=== PATIENT | female | born 1955 | race Caucasian/White ===

== ENCOUNTER → 2018-12-25 | Outpatient (CLI) | payer MEDICARE | END | disposition short-term general hospital (02) | LOC: EMS 21:49 | PROVIDERS: ATTEND Surgery | DX: R06.02 Shortness of breath (principal); R42 Dizziness and giddiness; R07.9 Chest pain, unspecified | CPT/HCPCS: A0425; A0427; A0888 ==

== ENCOUNTER 2020-10-14 16:15 | Outpatient (CLI) | payer MEDICARE, OTHER | END 2020-10-14 23:59 | disposition home or self-care (01) | LOC: LAB.R 16:15 | PROVIDERS: ATTEND Dentist General Practice | DX: Z01.89 Encounter for other specified special examinations (principal) | CPT/HCPCS: 36415 ==

== ENCOUNTER 2022-07-01 17:02 | Outpatient (CLI) | payer MEDICARE, OTHER | END 2022-07-01 17:03 | disposition critical access hospital (66) | LOC: EMS 17:02 | DX: M54.89 Other dorsalgia (principal); R20.0 Anesthesia of skin | CPT/HCPCS: A0425; A0429 ==

== ENCOUNTER 2022-07-01 17:20 | Emergency (ER) | payer MEDICARE, OTHER ==
[2022-07-01] MEDS ORDERED: methocarbamoL 500 MG TABLET PO STA (17:30)
[2022-07-01] MEDS ORDERED: KETOROLAC 30 MG/ML VIAL IM STA (17:30)
--- NOTE | 2022-07-01 17:54 | XRAY Report ---
PROCEDURE: Shoulder 2 View LT INDICATIONS: L SHOULDER PAIN X1 WEEK TECHNIQUE: 2 views of the shoulder were acquired. COMPARISON: None. FINDINGS: Bones: No fractures or dislocations. No suspicious bony lesions. Visualized ribs appear intact. M ild generalized left shoulder degenerative change can be seen. Soft tissues: No suspicious soft tissue calcifications. There is a calcified granuloma seen within the left midlung laterally. IMPRESSION: Age-appropriate left shoulder degenerative changes can be seen by plain film. If it would be helpful for clinical management decision making, please consider a dedicated, schedule d shoulder MRI for further evaluation (assuming that there is no contraindication). Reviewed by: Bautista Morgan MD on 07/01/2022 4:53 PM LEANDRO Approved by: Bautista Morgan MD on 07/01/2022 4:53 PM LEANDRO Station ID: [id number]
[2022-07-01] MEDS ORDERED: HALOPERIDOL 5 MG/ML VIAL IM STA (17:56)
[2022-07-01] MEDS ORDERED: BUPIVACAINE 0.75% MPF 30 ML VIAL EP ONE (18:39)
[2022-07-01] MEDS ORDERED: MORPHINE 2 MG/ML CARPUJECT IM STA (18:45)
--- NOTE | 2022-07-01 19:18 | ED Physician Documentation ---
PD HPI LOWER EXT INJURY - Stated complaint Stated Complaint: L SHOULDER PX - Chief complaint Chief Complaint: Trauma Ext - History obtained from History obtained from: Patient - History of Present Illness PD HPI LOW EXT INJURY LOCATION: Left, Other (Shoulder) - Additional information Additional information: 67-year-old female presents by EMS from home for 1 week of left-sided shoulder pain. Patient states that the last time this happened many years ago it was a severe muscle spasm. She states that she has been taking Tylenol and Motrin without improvement in her pain. She states she could not take it anymore and she was afraid that something worse might be going on and so she called 911. Patient states that the muscle spasms are so severe that it causes numbness to radiate down her arm. 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 Review of Systems Ten Systems: 10 systems reviewed and negative Constitutional: denies: Fever, Chills Cardiac: denies: Chest pain / pressure, Palpitations, Calf pain Respiratory: denies: Dyspnea, Cough, Wheezing GI: denies: Abdominal Pain, Nausea, Vomiting : denies: Dysuria, Frequency, Hesitancy Musculoskeletal: reports: Back pain. denies: Neck pain, Extremity pain, Joint pain, Extremity swelling Neurologic: reports: Numbness (Left arm). denies: Generalized weakness PD PAST MEDICAL HISTORY - Past Medical History Past Medical History: Yes - Present Medications Home Medications: Ambulatory Orders Medication Instructions Recorded Confirmed Lidocaine Patch 5% [Lidoderm Patch] 1 each TOP DAILY #10 patch 07/01/22 methocarbamoL [Robaxin] 500 mg PO Q6H #20 tablet 07/01/22 - Allergies Allergies/Adverse Reactions: Allergies Allergy/AdvReac Type Severity Reaction Status Date / Time No Known Drug Allergies Allergy Verified 07/01/22 17:36 - Social History Does the pt smoke?: No Smoking Status: Never smoker PD ED PE NORMAL - Vitals Vital signs reviewed: Yes - General General: Alert and oriented X 3, Well developed/nourished, Other (anxious, hyperventilating) - HEENT HEENT: Atraumatic, PERRL, EOMI - Neck Neck: Supple, no meningeal sign, No bony TTP, C-Spine cleared by NEXUS criteria, Other (negative spurling sign) - Cardiac Cardiac: RRR, No murmur, Strong equal pulses - Respiratory Respiratory: No respiratory distress, Clear bilaterally - Abdomen Abdomen: Soft, Non tender, Non distended - Back Back: No CVA TTP - Derm Derm: Normal color, Warm and dry, No rash - Extremities Extremities: No deformity, No tenderness to palpate, Normal ROM s pain, No edema - Neuro Neuro: Alert and oriented X 3, 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 There is a large palpable muscle spasm just medial to her scapula. Patient is hyperventilating and extremely anxious in the ED bed. Refusing to wear a facemask because she states that it makes it hard for her to breathe. Patient continued to complain of pain despite Haldol, Toradol, Robaxin. Offered trigger point injection, patient stated that she was afraid of the pain and did not want to go through with it. She asked if there is anything else that we can give her for the pain. Pain resolved with single dose of IM morphine. Patient states she is ready to go home. Discharged with Robaxin and lidocaine patches, counseled to take these with Tylenol and Motrin. Muscle spasm instructions counseled with the patient, gentle stretching exercises and massage. In addition patient was observed to constantly be leaning over to the left side and supporting her weight on her left elbow. Patient was informed that this is going to exacerbate her left shoulder pain and she should work to maintain a more balanced posture. Departure - Departure Disposition: 01 Home, Self Care Clinical Impression: Muscle spasm Condition: Stable Instructions: Muscle Spasm Prescriptions: Lidocaine Patch 5% [Lidoderm Patch] 1 each TOP DAILY #10 patch methocarbamoL [Robaxin] 500 mg PO Q6H #20 tablet Discharge Date/Time: 07/01/22 19:25
[2022-07-01 19:27] VITALS: BP 140/90
== END 2022-07-01 19:25 | disposition home or self-care (01) ==
LOC: EDUNIT# → ED 17:20
DX: M62.838 Other muscle spasm (principal); M25.512 Pain in left shoulder
CPT/HCPCS: 73030; 96372; 99282; 99283; A9270